=== PATIENT | male | born 1940 | race African-American/Black ===

== ENCOUNTER 2023-09-20 02:15 | Emergency (ER) | payer OTHER ==
[~2023-09-20] VITALS: Ht 185.4 cm; Wt 107.0 kg
[2023-09-20 02:33] VITALS: O2SAT 99
[2023-09-20 03:10] LABS: HEMATOCRIT. 39.2 % (42.0-52.0); HEMOGLOBIN. 12.7 g/dL (14.0-18.0); MEAN CORPUSCULAR HEMOGLOBIN 32.8 pg (28.0-32.0); MEAN CORPUSCULAR HGB CONC 32.5 g/dL (31.0-37.0); MEAN CORPUSCULAR VOLUME 100.9 fL (80.0-94.0); MEAN PLATELET VOLUME 9.1 fl (7.4-10.4); PLATELET 164 x1000/uL (130-400); RED BLOOD CELL COUNT 3.89 mill/uL (4.7-6.1); RED CELL DISTRIBUTION WIDTH 12.1 % (11.6-14.6); WHITE BLOOD COUNT 7.8 x1000/uL (4.5-11.0)
[2023-09-20 03:12] LABS: DIFFERENTIAL COMMENT 1
[2023-09-20 03:29] LABS: CARBON DIOXIDE 26 mEq/L (21-32); CHLORIDE 98 mEq/L (98-107); SODIUM 134 mEq/L (136-145)
[2023-09-20 03:30] LABS: CALCIUM 9.4 mg/dL (8.7-10.4)
[2023-09-20 03:32] LABS: ATYPICAL LYMPHOCYTES 3; PLATELET ESTIMATE NORMAL; TEAR DROP CELLS 2+
[2023-09-20 03:33] LABS: OVALOCYTES 1+
[2023-09-20 03:35] LABS: CREATININE 1.2 mg/dL (0.6-1.3); GLUCOSE 220 mg/dL (70-105); UREA NITROGEN BLOOD 26 mg/dL (9-23)
[2023-09-20 03:37] LABS: TROPONIN I HIGH SENSITIVITY 7 ng/L (3.0-53)
[2023-09-20] MEDS: MORPHINE SULFATE 4 MG/ML INJ (FOR IV/IM USE) IV ONE (04:42)
[2023-09-20] MEDS: LIDOCAINE 5% PATCH TOP ONE (04:43)
[2023-09-20] MEDS: ACETAMINOPHEN 1000MG/100ML 100 ML IV ONE (05:38)
[2023-09-20 09:27] VITALS: BP 130/52; PULSE 67; RESP 14; TEMP 98.4
== END 2023-09-20 09:39 | disposition short-term general hospital (02) ==
LOC: ER 02:15
DX: S22.32XA Fracture of one rib, left side, initial encounter for closed fracture (principal); W18.30XA Fall on same level, unspecified, initial encounter; E11.9 Type 2 diabetes mellitus without complications; I10 Essential (primary) hypertension; Z88.6 Allergy status to analgesic agent; Z00.00 Encounter for general adult medical examination without abnormal findings; Y93.89 Activity, other specified; Y92.89 Other specified places as the place of occurrence of the external cause; Y99.8 Other external cause status
CPT/HCPCS: 99285; 96365; 71250; 71045; 96375; 80048; 83880; 85025; 84484; 36415; 93005; J2270; J0131

== ENCOUNTER 2024-06-27 18:52 | Emergency (ER) | payer OTHER ==
[~2024-06-27] VITALS: Ht 182.9 cm; Wt 90.0 kg
[2024-06-27 18:53] VITALS: O2SAT 97
[2024-06-27] MEDS: IOHEXOL-350 100 ML BOTTLE ONE (21:09)
[2024-06-27 22:24] LABS: HEMATOCRIT. 37.1 % (42.0-52.0); HEMOGLOBIN. 12.3 g/dL (14.0-18.0); MEAN CORPUSCULAR HEMOGLOBIN 33.3 pg (28.0-32.0); MEAN CORPUSCULAR HGB CONC 33.1 g/dL (31.0-37.0); MEAN CORPUSCULAR VOLUME 100.6 fL (80.0-94.0); MEAN PLATELET VOLUME 9.5 fl (7.4-10.4); PLATELET 170 x1000/uL (130-400); RED BLOOD CELL COUNT 3.69 mill/uL (4.7-6.1); RED CELL DISTRIBUTION WIDTH 12.3 % (11.6-14.6); WHITE BLOOD COUNT 10.2 x1000/uL (4.5-11.0)
[2024-06-27 22:32] LABS: CHLORIDE 103 mEq/L (98-107); POTASSIUM 3.8 mEq/L (3.5-5.1); SODIUM 141 mEq/L (136-145)
[2024-06-27 22:33] LABS: CALCIUM 9.4 mg/dL (8.7-10.4); CARBON DIOXIDE 27 mEq/L (21-32)
[2024-06-27 22:38] LABS: CREATININE 0.9 mg/dL (0.6-1.3); GLUCOSE 93 mg/dL (70-105); UREA NITROGEN BLOOD 17 mg/dL (9-23)
[2024-06-27 22:39] LABS: DIFFERENTIAL COMMENT 1; ETHANOL BLOOD < 10 mg/dL (<10)
[2024-06-27 22:40] LABS: TROPONIN I HIGH SENSITIVITY 18 ng/L (3.0-53)
[2024-06-27 22:44] LABS: INR 1.1; PROTHROMBIN TIME 11.4 sec (9.6-11.0)
[2024-06-27 23:13] LABS: PLATELET ESTIMATE NORMAL
[2024-06-27 23:49] LABS: CLARITY URINE CLEAR (CLEAR); COLOR URINE YELLOW (YELLOW); GLUCOSE URINE 3+ (NEGATIVE); KETONES URINE NEGATIVE (NEGATIVE); LEUKOCYTE ESTERASE URINE NEGATIVE (NEGATIVE); NITRITE URINE NEGATIVE (NEGATIVE); OCCULT BLOOD URINE 2+ (NEGATIVE); PH URINE 6.5 (4.5-8.0); PROTEIN URINE TRACE (NEGATIVE); SPECIFIC GRAVITY URINE 1.063 (1.005-1.030)
[2024-06-27] MEDS: SODIUM CHLORIDE 0.9% 1,000 ML IV ONE (23:53)
[2024-06-28] MEDS: CEFTRIAXONE 1GM/50ML 50 ML IV NR
[2024-06-28 00:08] LABS: SQUAMOUS EPITHELIAL CELL URINE FEW /lpf (RARE/1+)
[2024-06-28 00:10] LABS: BACTERIA URINE NONE SEEN; RBC URINE 25-50 /hpf (0-2)
[2024-06-28 00:15] LABS: TROPONIN I HIGH SENSITIVITY 18 ng/L (3.0-53)
[2024-06-28 00:19] LABS: *AMPHETAMINES SCREEN URINE NEGATIVE (NEGATIVE); *BARBITURATES SCREEN URINE NEGATIVE (NEGATIVE); *BENZODIAZEPINES SCREEN URINE NEGATIVE (NEGATIVE); *COCAINE SCREEN URINE NEGATIVE (NEGATIVE)
[2024-06-28 00:20] LABS: CANNABINOID URINE SCREEN NEGATIVE (NEGATIVE); ECSTASY MDMA SCREEN URINE NEGATIVE (NEGATIVE); METHADONE URINE SCREEN NEGATIVE (NEGATIVE); OPIATES URINE SCREEN NEGATIVE (NEGATIVE); PHENCYCLIDINE URINE SCREEN NEGATIVE (NEGATIVE)
[2024-06-28 02:08] VITALS: BP 154/66; PULSE 77; RESP 13; TEMP 37.6; O2SAT 97
== END 2024-06-28 02:45 | disposition short-term general hospital (02) ==
LOC: ER 18:52 → CANBEDREQ 06-28 02:22 → ER 06-28 02:45
DX: R53.1 Weakness (principal); R29.810 Facial weakness; I10 Essential (primary) hypertension; E11.9 Type 2 diabetes mellitus without complications; I48.91 Unspecified atrial fibrillation; Z79.899 Other long term (current) drug therapy; Z88.6 Allergy status to analgesic agent
CPT/HCPCS: 80305; 80048; 81003; 80320; 85025; 85610; 84484; 36415; 71045; 70496; 70498; 70450; 93005; 96361; 99285; 82962; 96365; Q9967; J0696; J7030; G0480

== ENCOUNTER 2024-08-03 06:41 | Emergency (ER) | payer OTHER ==
[~2024-08-03] VITALS: Ht 182.9 cm; Wt 95.0 kg
[2024-08-03 06:56] VITALS: O2SAT 96
[2024-08-03] MEDS: SODIUM CHLORIDE 0.9% 1,000 ML IV ONE (07:33)
[2024-08-03 07:40] LABS: HEMATOCRIT. 34.5 % (42.0-52.0); HEMOGLOBIN. 11.4 g/dL (14.0-18.0); MEAN CORPUSCULAR HEMOGLOBIN 32.3 pg (28.0-32.0); MEAN CORPUSCULAR HGB CONC 33.1 g/dL (31.0-37.0); MEAN CORPUSCULAR VOLUME 97.5 fL (80.0-94.0); MEAN PLATELET VOLUME 7.7 fl (7.4-10.4); PLATELET 235 x1000/uL (130-400); RED BLOOD CELL COUNT 3.54 mill/uL (4.7-6.1); RED CELL DISTRIBUTION WIDTH 12.7 % (11.6-14.6); WHITE BLOOD COUNT 11.3 x1000/uL (4.5-11.0)
[2024-08-03 07:44] LABS: INR 1.1; PROTHROMBIN TIME 11.5 sec (9.6-11.0)
[2024-08-03 07:54] LABS: CHLORIDE 106 mEq/L (98-107); SODIUM 139 mEq/L (136-145)
[2024-08-03 07:55] LABS: CALCIUM 8.7 mg/dL (8.7-10.4); CARBON DIOXIDE 27 mEq/L (21-32)
[2024-08-03 07:59] LABS: DIFFERENTIAL COMMENT 1
[2024-08-03 08:00] LABS: CREATININE 0.7 mg/dL (0.6-1.3); GLUCOSE 110 mg/dL (70-105); UREA NITROGEN BLOOD 15 mg/dL (9-23)
[2024-08-03 08:02] LABS: TROPONIN I HIGH SENSITIVITY 11 ng/L (3.0-53)
[2024-08-03 08:44] LABS: PLATELET ESTIMATE NORMAL
[2024-08-03] MEDS: SODIUM CHLORIDE 0.9% (SEPSIS BOLUS) IV ONE (09:04)
[2024-08-03] MEDS: PIPERACILLIN/TAZO 3.375G/50ML 50 ML IV ONE (09:05)
[2024-08-03 09:20] LABS: ALANINE AMINOTRANSFERASE 14 IU/L (10-49); ASPARTATE AMINOTRANSFERASE 21 IU/L (<34); BILIRUBIN DIRECT 0.4 mg/dL (<=3.0); BILIRUBIN TOTAL 1.2 mg/dL (0.1-1.0); PROTEIN TOTAL 6.6 g/dL (6.0-8.3)
[2024-08-03] MEDS: VANCOMYCIN 1G PREMIX 200 ML IV ONE (09:20)
[2024-08-03 10:00] LABS: TROPONIN I HIGH SENSITIVITY 12 ng/L (3.0-53)
[2024-08-03] MEDS: ACETAMINOPHEN 325MG TABLET PO ONE (11:10)
[2024-08-03] MEDS: BENZONATATE 100MG CAPSULE PO ONE (12:49)
[2024-08-03 13:42] VITALS: BP 139/75; PULSE 99; RESP 22; TEMP 37.7; O2SAT 99
== END 2024-08-03 13:57 | disposition short-term general hospital (02) ==
LOC: ER 06:41 → ENRESERV 08-06 00:27
DX: R53.1 Weakness (principal); D72.825 Bandemia; R50.9 Fever, unspecified; R65.10 Systemic inflammatory response syndrome (SIRS) of non-infectious origin without acute organ dysfunction; E11.9 Type 2 diabetes mellitus without complications; Z88.6 Allergy status to analgesic agent
CPT/HCPCS: 99291; 96365; 96361; 96375; 87426; 80076; 80048; 83605; 85025; 85610; 87040; 84484; 36415; 84145; 71045; 93005; J2543; J3370; J7030